=== PATIENT | female | born 1985 | race Caucasian/White ===

== ENCOUNTER 2018-01-07 07:16 | Emergency (ER) | payer BC ==
[2018-01-07 07:24] VITALS: BMI 27.0
[2018-01-07 07:26] VITALS: O2SAT 99
[2018-01-07] MEDS ORDERED: Sodium Chloride 0.9% 1,000 ML IV STA (08:13)
--- NOTE | 2018-01-07 08:16 | ED PDOC ---
HPI:Nausea, Vomiting, Diarrhea Time Seen by Provider: 01/07/18 07:25 Chief Complaint (Nursing): GI Problem Chief Complaint (Provider): Vomiting Additional Complaint(s): Pt @ 17 weeks presents with fever (Tm 100.6) X 2 days, nausea, nonbloody vomiting and one episode of diarrhea. Last too, Tylenol @ 9 PM yesterday. Was evaluated @ Urgent Care yesterday, flu swab negative. Was sent by OB today for blood work to r/o infection. Denies ZHOU, cough, sore throat, dysuria, hematuria. Past Medical History Reviewed: Nursing Documentation, Vital Signs Vital Signs: Last Vital Signs Temp 98.7 F 01/07/18 07:25 Pulse 95 H 01/07/18 07:25 Resp 17 01/07/18 07:25 BP 108/73 01/07/18 07:25 Pulse Ox 99 01/07/18 07:25 - Medical History PMH: No Chronic Diseases, Hypothyroidism Denies: Chronic Kidney Disease - Surgical History Surgical History: No Surg Hx - Family History Family History: States: Unknown Family Hx - Living Arrangements Living Arrangements: With Family - Social History Current smoker - smoking cessation education provided: No Alcohol: None - Home Medications Home Medications: Ambulatory Orders Medication Instructions Recorded Nitrofurantoin Macrocrystals 100 mg PO BID #13 cap 01/07/18 [Macrobid] Ondansetron [Zofran Odt] 4 mg PO Q8H PRN #15 odt 01/07/18 - Allergies Allergies/Adverse Reactions: Allergies Allergy/AdvReac Type Severity Reaction Status Date / Time No Known Allergies Allergy Verified 01/07/18 08:13 Review of Systems Constitutional: Positive for: Fever, Chills ENT: Negative for: Ear Pain, Nose Congestion, Throat Pain Cardiovascular: Negative for: Chest Pain, Palpitations Respiratory: Negative for: Cough, Shortness of Breath Gastrointestinal: Positive for: Nausea, Vomiting, Abdominal Pain, Diarrhea Genitourinary Female: Negative for: Dysuria, Hematuria, Vaginal Discharge, Vaginal Bleeding Musculoskeletal: Negative for: Neck Pain, Back Pain Skin: Negative for: Rash, Lesions Neurological: Negative for: Headache Physical Exam - Reviewed Nursing Documentation Reviewed: Yes Vital Signs Reviewed: Yes - Physical Exam Appears: Positive for: Well, No Acute Distress Skin: Positive for: Normal Color, Warm, Dry Eye Exam: Positive for: Normal appearance, EOMI, PERRL Cardiovascular/Chest: Positive for: Regular Rate, Rhythm Respiratory: Positive for: Normal Breath Sounds. Negative for: Rales, Rhonchi, Wheezing Gastrointestinal/Abdominal: Positive for: Normal Exam (Gravid), Bowel Sounds, Soft. Negative for: Tenderness, Guarding, Rebound Extremity: Positive for: Normal ROM Neurologic/Psych: Positive for: Alert, Oriented - Laboratory Results Result Diagrams: 01/07/18 08:40 01/07/18 08:40 - ECG O2 Sat by Pulse Oximetry: 99 Medical Decision Making Medical Decision Makin yo @ 17 weeks with fever, nausea, vomiting and diarrhea. - labs - IVF - Zofran Pt refused IV insertion. Pt given copy of labs. Disposition - Clinical Impression Clinical Impression: UTI in , Gastroenteritis - Disposition Disposition: Routine/Home Disposition Time: 11:24 Condition: STABLE Additional Instructions: FOLLOW-UP WITH OB WITHIN 2 DAYS FOR REEVALUATION. Prescriptions: Nitrofurantoin Macrocrystals [Macrobid] 100 mg PO BID #13 cap Ondansetron [Zofran Odt] 4 mg PO Q8H PRN #15 odt PRN Reason: Nausea/Vomiting Instructions: Urinary Tract Infection, Adult (DC), Gastritis (DC) Forms: [employer] ([place])
[2018-01-07 08:59] LABS: BASO % 0.4 % (0.0-2.0); EOS # 0.1 K/uL (0.0-0.7); EOS % 0.7 % (0.0-4.0); HEMOGLOBIN 12.6 g/dL (12.0-16.0); LYMPH # 0.8 K/uL (1.0-4.3); LYMPH % 8.5 % (20.0-40.0); MEAN CELL VOLUME 88.7 fl (81.0-99.0); MEAN CORPUSCULAR HEMOGLOBIN 30.2 pg (27.0-31.0); MEAN CORPUSCULAR HGB CONC 34.1 g/dL (33.0-37.0); MEAN PLATELET VOLUME 9.3 fl (7.2-11.7); MONO # 0.6 K/uL (0.0-0.8); MONO % 6.5 % (0.0-10.0); NEUT # 7.6 K/uL (1.8-7.0); NEUT % 83.9 % (50.0-75.0); PLATELET COUNT 286 K/uL (130-400); RBC 4.16 Mil/uL (3.80-5.20); RED CELL DISTRIBUTION WIDTH 13.1 % (11.5-14.5)
[2018-01-07 09:12] LABS: ALB/GLOB RATIO 1.1 (1.0-2.1); ALBUMIN 4.1 g/dL (3.5-5.0); ALT/SGPT 26 U/L (9-52); AST/SGOT 27 U/L (14-36); BLOOD UREA NITROGEN 5 mg/dl (7-17); CALCIUM 9.3 mg/dL (8.4-10.2); GFR AFRICAN-AMERICAN > 60; GFR NON-AFRICAN AMERICAN > 60
[2018-01-07 10:08] LABS: SQUAMOUS EPITHIAL 2 /hpf (0-5); URINE BACTERIA MANY (<OCC); URINE BILIRUBIN NEGATIVE (NEGATIVE); URINE BLOOD NEGATIVE (NEGATIVE); URINE CLARITY SLIGHTY-CLOUDY (Clear); URINE COLOR STRAW (YELLOW); URINE GLUCOSE (UA) NEG (Normal); URINE LEUKOCYTE ESTERASE NEG Leu/uL (Negative); URINE PROTEIN NEGATIVE (NEGATIVE); URINE UROBILINOGEN 0.2-1.0 mg/dL (0.2-1.0)
[2018-01-07 11:14] LABS: BANDS 4 % (0-2); EOSINOPHIL 1 % (0-7); LYMPHOCYTE 6 % (20-50); MONOCYTE 4 % (0-10); NEUTROPHIL 85 % (42-75); TOTAL CELLS COUNTED 100
[2018-01-07 11:15] LABS: ANISOCYTOSIS SLIGHT; HYPOCHROMIC SLIGHT; PLATELET ESTIMATE NORMAL (NORMAL)
[2018-01-07 11:32] VITALS: BP 97/63; PULSE 92; RESP 18; TEMP 98
== END 2018-01-07 11:58 | disposition home or self-care (01) ==
LOC: H.ER 07:16
DX: K52.9 Noninfective gastroenteritis and colitis, unspecified (principal); O23.40 Unspecified infection of urinary tract in pregnancy, unspecified trimester
CPT/HCPCS: 80053; 81003; 85025; 87804; 96360; 99284; J7040